=== PATIENT | female | born 1990 | race Caucasian/White ===

== ENCOUNTER 2019-08-13 18:29 | Inpatient (IN) | payer BC ==
[2019-08-13] MEDS ORDERED: Lidocaine 1% 50 ML MDV INJECT PRN (18:44)
[2019-08-13] MEDS ORDERED: Nalbuphine 10 MG/1 ML Vial IVPUSH PRN (18:44)
[2019-08-13] MEDS ORDERED: Water For Irrigation,Sterile 1,000 ML Container IRR PRN (18:44)
[2019-08-13] MEDS ORDERED: Sodium Chloride 0.9% 10 ML SDV IV PRN (18:44)
[2019-08-13] MEDS ORDERED: Tranexamic Acid 1,000 MG in Sodium Chloride 0.9% 100 ML IV PRN (18:44)
[2019-08-13] MEDS ORDERED: Methylergonovine 0.2 MG/1 ML Amp IM PRN (18:44)
[2019-08-13] MEDS ORDERED: Butorphanol 1 MG/ML SDV IVPUSH PRN (18:44)
[2019-08-13] MEDS ORDERED: Sodium Chloride 0.9% 10 ML Syringe FLUSH PRN (18:44)
[2019-08-13] MEDS ORDERED: Sodium Chloride 0.9% 2.5 ML Syringe FLUSH PRN (18:44)
[2019-08-13] MEDS ORDERED: Carboprost Tromethamine 250 MCG/1 ML Amp IM PRN (18:44)
[2019-08-13] MEDS ORDERED: Misoprostol 200 MCG Tab PO PRN (18:44)
[2019-08-13] MEDS ORDERED: Lactated Ringers 1,000 ML IV SCH ×2 (18:45→20:15)
[2019-08-13] MEDS ORDERED: Oxytocin/0.9 % Sodium Chloride 30 UNIT/500 ML BAG IV SCH (18:45)
[2019-08-13] MEDS ORDERED: Bupivicaine/fentaNYL/NS 250 ML ONE (19:59)
[2019-08-13] MEDS ORDERED: Ropivacaine 0.2% PF 2 MG/ML 20 ML SDV ONE (19:59)
--- NOTE | 2019-08-13 20:49 | PCM.PREANE ---
Preanesthetic Assessment - Procedure Proposed Procedure: labor epidural - Anesthesia/Transfusion/Family Hx Anesthesia History: No Prior Anesthesia Family History of Anesthesia Reaction: No Transfusion History: No Prior Transfusion(s) Intubation History: Unknown - Review of Systems General: No Symptoms Pulmonary: No Symptoms Cardiovascular: No Symptoms Gastrointestinal: No Symptoms Neurological: No Symptoms Other: Reports: None - Physical Assessment Height: 5 ft 5 in Weight: 71.214 kg ASA Class: 2 Mental Status: Alert & Oriented x3 Airway Class: Mallampati = 1 Dentition: Reports: Normal Dentition Thyro-Mental Finger Breadths: 3 Mouth Opening Finger Breadths: 3 ROM/Head Extension: Full Lungs: Clear to Auscultation, Normal Respiratory Effort Cardiovascular: Regular Rate, Regular Rhythm - Lab Values: Laboratory Last Values WBC 7.62 K/uL (4.0-11.0) 08/13/19 19:15 RBC 3.87 M/uL (4.30-5.90) L 08/13/19 19:15 Hgb 11.3 g/dL (12.0-16.0) L 08/13/19 19:15 Hct 34.1 % (36.0-46.0) L 08/13/19 19:15 MCV 88.1 fL (80.0-98.0) 08/13/19 19:15 MCH 29.2 pg (27.0-32.0) 08/13/19 19:15 MCHC 33.1 g/dL (31.0-37.0) 08/13/19 19:15 RDW Std Deviation 45.3 fl (28.0-62.0) 08/13/19 19:15 RDW Coeff of Caren 14 % (11.0-15.0) 08/13/19 19:15 Plt Count 180 K/uL (150-400) 08/13/19 19:15 MPV 10.90 fL (7.40-12.00) 08/13/19 19:15 Nucleated RBC % 0.0 /100WBC 08/13/19 19:15 Nucleated RBCs # 0 K/uL 08/13/19 19:15 - Allergies Allergies/Adverse Reactions: Allergies Allergy/AdvReac Type Severity Reaction Status Date / Time No Known Allergies Allergy Verified 08/13/19 18:44 - Blood Blood Available: Yes Product(s) Available: PRBC - Anesthesia Plan Pre-Op Medication Ordered: None - Acknowledgements Anesthesia Type Planned: Epidural Pt an Appropriate Candidate for the Planned Anesthesia: Yes Alternatives and Risks of Anesthesia Discussed w Pt/Guardian: Yes Pt/Guardian Understands and Agrees with Anesthesia Plan: Yes PreAnesthesia Questionnaire - HOME MEDS Home Medications: Home Meds . [No Known Home Meds] 08/13/19 [History] - CURRENT (IN HOUSE) MEDS Current Meds: Current Medications Butorphanol Tartrate (Stadol) 1 mg IVPUSH Q1H PRN PRN Reason: Pain Carboprost Tromethamine (Hemabate Ds) 250 mcg IM ASDIRECTED PRN PRN Reason: Post Hemorrhage Oxytocin/Sodium Chloride (Oxytocin 30 Unit/500 Ml-Ns) 30 unit in 500 mls @ 500 mls/hr IV TITRATE [facility] Tranexamic Acid 1,000 mg/ (Sodium Chloride) 110 mls @ 660 mls/hr IV ONETIME PRN PRN Reason: Bleeding Lactated Ringer's (Ringers, Lactated) 1,000 mls @ 150 mls/hr IV CONTINUOUS RAZ Lidocaine HCl (Xylocaine 1%) 50 ml INJECT ONETIME PRN PRN Reason: Laceration repair Methylergonovine Maleate (Methergine) 0.2 mg IM ASDIRECTED PRN PRN Reason: Post Hemorrhage Misoprostol (Cytotec) 200 mcg PO ONETIME PRN PRN Reason: Post Hemorrhage Nalbuphine HCl (Nubain) 10 mg IVPUSH Q1H PRN PRN Reason: Pain (severe 7-10) Sodium Chloride (Saline Flush) 10 ml FLUSH ASDIRECTED PRN PRN Reason: Keep Vein Open Sodium Chloride (Saline Flush) 2.5 ml FLUSH ASDIRECTED PRN PRN Reason: Keep Vein Open Sodium Chloride (Normal Saline) 10 ml IV ASDIRECTED PRN PRN Reason: IV Use Sterile Water (Sterile Water For Irrigation) 1,000 ml IRR ASDIRECTED PRN PRN Reason: delivery Discontinued Medications Lactated Ringer's (Ringers, Lactated) 1,000 mls @ 150 mls/hr IV ASDIRECTED RAZ Last Infusion: 08/13/19 20:14 Dose: 999 mls/hr Fentanyl/Bupivacaine HCl (Fentanyl/Bupivacaine/Ns 2 Mcg-0.125% 250 Ml) Confirm Administered Dose 250 mls @ as directed .ROUTE .ST-MED ONE Stop: 08/13/19 20:00 Ropivacaine (Naropin 0.2%) Confirm Administered Dose 20 ml .ROUTE .[facility]-MED ONE Stop: 08/13/19 20:00
[2019-08-14] MEDS ORDERED: Acetaminophen 500 MG Tab PO PRN (00:47)
[2019-08-14] MEDS ORDERED: Bisacodyl 10 MG Supp RECTAL PRN (00:47)
[2019-08-14] MEDS ORDERED: Lanolin 100% Cream 7 GM Tube TOP PRN (00:47)
[2019-08-14] MEDS ORDERED: Benzocaine/Menthol 20%-0.5% Spray 78 GM Cannister TOP PRN (00:47)
[2019-08-14] MEDS ORDERED: oxyCODONE 5 MG Tab PO PRN (00:47)
[2019-08-14] MEDS ORDERED: Witch Hazel Medicated Pads 40/Jar TOP PRN (00:47)
--- NOTE | 2019-08-14 00:52 | PCM.DEL ---
L & D Note - General Info Date of Service: 08/14/19 Mother's Due Date: 08/18/19 - Delivery Note Labor: Spontaneous Delivery Outcome: Livebirth Infant Delivery Method: Spontaneous Vaginal Delivery-Single Presentation: Vertex Nuchal Cord: None Anesthesia Type: Epidural Amniotic Fluid Description: Clear Episiotomy Type: None Laceration: 2nd Degree Suture type: Vicryl Suture size: 2-0 Placenta: Intact, Spontaneous, Manual Removal (cord avulsion, inspected and appears to be intact) Cord: 3 Vessels Estimated Blood Loss: 400 Resuscitation Needed: Yes Towner: Suctioned, Bulb Syringe, Cathether, Stimulated, Warmed Score 1 min: 8 Score 5 min: 9 - General Info Date of Service: 08/14/19 - Patient Data Weight - Most Recent: 71.214 kg Lab Results Last 24 Hours: Laboratory Results - last 24 hr 08/13/19 08/13/19 Range/Units 19:15 19:15 WBC 7.62 (4.0-11.0) K/uL RBC 3.87 L (4.30-5.90) M/uL Hgb 11.3 L (12.0-16.0) g/dL Hct 34.1 L (36.0-46.0) % MCV 88.1 (80.0-98.0) fL MCH 29.2 (27.0-32.0) pg MCHC 33.1 (31.0-37.0) g/dL RDW Std Deviation 45.3 (28.0-62.0) fl RDW Coeff of Caren 14 (11.0-15.0) % Plt Count 180 (150-400) K/uL MPV 10.90 (7.40-12.00) fL Nucleated RBC % 0.0 /100WBC Nucleated RBCs # 0 K/uL Blood Type O NEGATIVE Antibody Screen NEGATIVE Med Orders - Current: Current Medications Acetaminophen (Tylenol Extra Strength) 1,000 mg PO Q6H PRN PRN Reason: Pain Benzocaine/Menthol (Dermoplast Pain Relief 20%-0.5% [place]) 78 gm TOP ASDIRECTED PRN PRN Reason: Perineal Comfort Measure Bisacodyl (Dulcolax) 10 mg RECTAL ONETIME PRN PRN Reason: Constipation Butorphanol Tartrate (Stadol) 1 mg IVPUSH Q1H PRN PRN Reason: Pain Carboprost Tromethamine (Hemabate Ds) 250 mcg IM ASDIRECTED PRN PRN Reason: Post Hemorrhage Docusate Sodium (Colace) 100 mg PO BID PRN PRN Reason: Constipation Emollient Ointment (Lansinoh Hpa) 0 gm TOP ASDIRECTED PRN PRN Reason: Sore Nipples Oxytocin/Sodium Chloride (Oxytocin 30 Unit/500 Ml-Ns) 30 unit in 500 mls @ 500 mls/hr IV TITRATE RAZ Last Admin: 08/14/19 00:04 Dose: 500 mls/hr Tranexamic Acid 1,000 mg/ (Sodium Chloride) 110 mls @ 660 mls/hr IV ONETIME PRN PRN Reason: Bleeding Lactated Ringer's (Ringers, Lactated) 1,000 mls @ 150 mls/hr IV CONTINUOUS RAZ Ibuprofen (Motrin) 800 mg PO Q8H PRN PRN Reason: Pain Lidocaine HCl (Xylocaine 1%) 50 ml INJECT ONETIME PRN PRN Reason: Laceration repair Methylergonovine Maleate (Methergine) 0.2 mg IM ASDIRECTED PRN PRN Reason: Post Hemorrhage Misoprostol (Cytotec) 200 mcg PO ONETIME PRN PRN Reason: Post Hemorrhage Nalbuphine HCl (Nubain) 10 mg IVPUSH Q1H PRN PRN Reason: Pain (severe 7-10) Oxycodone HCl (Oxycodone) 5 mg PO Q2H PRN PRN Reason: Pain Sodium Chloride (Saline Flush) 10 ml FLUSH ASDIRECTED PRN PRN Reason: Keep Vein Open Sodium Chloride (Saline Flush) 2.5 ml FLUSH ASDIRECTED PRN PRN Reason: Keep Vein Open Sodium Chloride (Normal Saline) 10 ml IV ASDIRECTED PRN PRN Reason: IV Use Sterile Water (Sterile Water For Irrigation) 1,000 ml IRR ASDIRECTED PRN PRN Reason: delivery Last Admin: 08/14/19 00:04 Dose: 1,000 ml Witch Jessica (Tucks) 1 pad TOP ASDIRECTED PRN PRN Reason: comfort care Discontinued Medications Lactated Ringer's (Ringers, Lactated) 1,000 mls @ 150 mls/hr IV ASDIRECTED RAZ Last Infusion: 08/13/19 20:14 Dose: 999 mls/hr Fentanyl/Bupivacaine HCl (Fentanyl/Bupivacaine/Ns 2 Mcg-0.125% 250 Ml) Confirm Administered Dose 250 mls @ as directed .ROUTE .STK-MED ONE Stop: 08/13/19 20:00 Ropivacaine (Naropin 0.2%) Confirm Administered Dose 20 ml .ROUTE .STK-MED ONE Stop: 08/13/19 20:00 - Problem List & Annotations (1) Vaginal delivery SNOMED Code(s): 405297966 Code(s): O80 - ENCOUNTER FOR FULL-TERM UNCOMPLICATED DELIVERY Status: Acute Current Visit: Yes - Problem List Review Problem List Initiated/Reviewed/Updated: Yes - My Orders Last 24 Hours: My Active Orders 08/13/19 18:44 Patient Status [ADT] Routine Heart Tones [RC] CONTINUOUS Non Stress Test [RC] PER UNIT ROUTINE May Shower [RC] ASDIRECTED Notify Provider [RC] PRN Up ad Yudy [RC] ASDIRECTED Vaginal Exam [RC] PRN Vital Signs [RC] PER UNIT ROUTINE Butorphanol [Stadol] 1 mg IVPUSH Q1H PRN Carboprost Tromethamine [Hemabate DS] 250 mcg IM ASDIRECTED PRN Lidocaine 1% [Xylocaine 1%] 50 ml INJECT ONETIME PRN Methylergonovine [Methergine] 0.2 mg IM ASDIRECTED PRN Nalbuphine [Nubain] 10 mg IVPUSH Q1H PRN Sodium Chloride 0.9% [Normal Saline] 10 ml IV ASDIRECTED PRN Sodium Chloride 0.9% [Saline Flush] 10 ml FLUSH ASDIRECTED PRN Sodium Chloride 0.9% [Saline Flush] 2.5 ml FLUSH ASDIRECTED PRN Tranexamic Acid [Cyklokapron] 1,000 mg Sodium Chloride 0.9% [Normal Saline] 100 ml IV ONETIME Water For Irrigation,Sterile [Sterile Water for Irrigation] 1,000 ml IRR ASDIRECTED PRN miSOPROStoL [Cytotec] 200 mcg PO ONETIME PRN Scalp Electrode [WOMSER] Per Unit Routine Peripheral IV Insertion Adult [OM.PC] Routine Resuscitation Status Routine 08/13/19 18:45 Oxytocin/0.9 % Sodium Chloride [Oxytocin 30 Unit/500 ML-NS] 30 unit in 500 ml IV TITRATE 08/13/19 19:15 RPR (SYPHILIS SERO) W/ RFLX [REF] Routine 08/13/19 20:15 Lactated Ringers [Ringers, Lactated] 1,000 ml IV CONTINUOUS 08/14/19 00:47 Patient Status [ADT] Routine May Shower [RC] ASDIRECTED Notify Provider Vital Signs [RC] ASDIRECTED Up ad Yudy [RC] ASDIRECTED Vital Signs [RC] PER UNIT ROUTINE RHIG WORKUP, [BBK] Routine Acetaminophen [Tylenol Extra Strength] 1,000 mg PO Q6H PRN Benzocaine/Menthol [Dermoplast Pain Relief 20%-0.5% [place]] 78 gm TOP ASDIRECTED PRN Docusate Sodium [Colace] 100 mg PO BID PRN Ibuprofen [Motrin] 800 mg PO Q8H PRN Lanolin [Lansinoh HPA] See Dose Instructions TOP ASDIRECTED PRN bisacodyL [Dulcolax] 10 mg RECTAL ONETIME PRN oxyCODONE 5 mg PO Q2H PRN witch Jessica [Tucks] 1 pad TOP ASDIRECTED PRN Assess Lochia [WOMSER] Per Unit Routine Assess Uterine Involution [WOMSER] Per Unit Routine Breast Pump [WOMSER] Per Unit Routine Peripheral IV Discontinue [OM.PC] Routine 08/14/19 00:48 Cooling Warming Measures [RC] ASDIRECTED Ice Therapy [OM.PC] Per Unit Routine Perineal Care [OM.PC] Per Unit Routine Sitz Bath [OM.PC] Per Unit Routine 08/14/19 Breakfast Regular Diet [DIET] 08/15/19 05:11 HEMOGLOBIN/HEMATOCRIT,HH [HEME] Timed - Assessment Assessment:: 29yo s/p at 39w3d - Plan Plan:: Admit to unit for routine care. Rh negative, evaluate blood type, Rhogam if indicated.
--- NOTE | 2019-08-14 02:00 | OR ---
SURGEON: Yasmine Walker MD DATE OF PROCEDURE: 08/14/2019 PREOPERATIVE DIAGNOSES: 1. A 29-year-old G1, P0, at 39 weeks and 2 days' gestation. 2. Group B Streptococcus negative. 3. Labor. POSTOPERATIVE DIAGNOSES: 1. A 29-year-old G1, P1-0-0-1 at 39 weeks and 3 days' gestation, status post spontaneous vaginal delivery. 2. Umbilical cord avulsion. 3. Second degree perineal laceration. PROCEDURE: 1. Spontaneous vaginal delivery. 2. Manual extraction of placenta. 3. Repair of second-degree perineal laceration. PRIMARY SURGEON: Yasmine Walker MD ANESTHESIA: Epidural. FINDINGS: Live female infant in cephalic presentation with compound right hand. scores 8 and 9 at one and five minutes respectively. Weight 3210 g. Placenta intact and with 3-vessel cord. Second-degree perineal laceration. INDICATIONS: A 29-year-old G1, P0, who presented at 39 weeks and 2 days' gestation in active labor. She was found to be 4 to 5 cm dilated upon presentation and progressed to 6 cm dilated spontaneously. At this time, she received an epidural for pain control. At 7 cm dilated, she underwent artificial rupture of membranes with clear fluid noted. She progressed to complete cervical dilation. She began pushing and I was called to the room. DESCRIPTION OF PROCEDURE: The patient progressed to complete cervical dilation. She pushed and delivered a live female . The head was delivered followed by the shoulders and the remainder of the body. Right compound hand was noted. It was placed on maternal abdomen. After approximately 60 seconds, the cord was clamped and cut. During gentle traction on the umbilical cord, cord avulsion was noted. A manual extraction of the placenta was then performed easily. The placenta was inspected and noted to be intact without any missing cotyledons or membranes. A bimanual exam was performed and the uterus was palpated to be empty. The perineum was inspected and a second-degree perineal laceration was noted. This was repaired to anatomy and hemostasis with 2-0 Vicryl. Fundus was firm below the umbilicus with minimal lochia. The patient tolerated the delivery well. [id number] / MODL /[id number] [facility]
--- NOTE | 2019-08-14 07:30 | PCM48HPAN ---
Post Anesthesia Note - EVALUATION WITHIN 48HRS OF ANESTHETIC Vital Signs in Normal Range: Yes Patient Participated in Evaluation: Yes Respiratory Function Stable: Yes Airway Patent: Yes Cardiovascular Function Stable: Yes Hydration Status Stable: Yes Pain Control Satisfactory: Yes Nausea and Vomiting Control Satisfactory: Yes Mental Status Recovered: Yes
[2019-08-14] MEDS: Docusate Sodium 100 MG Cap PO PRN ×2 (09:54→22:58)
[2019-08-14] MEDS: Ibuprofen 800 MG Tab PO PRN ×2 (09:54→18:05)
--- NOTE | 2019-08-15 08:22 | PCM.PNPP ---
- General Info Date of Service: 08/15/19 Subjective Update: Patient without complaints. Moderate lochia. Pain controlled. going well today. Denies fevers/chills. Functional Status: Reports: Pain Controlled, Tolerating Diet, Ambulating, Urinating - Review of Systems General: Reports: No Symptoms HEENT: Reports: No Symptoms Pulmonary: Reports: No Symptoms Cardiovascular: Reports: No Symptoms Gastrointestinal: Reports: No Symptoms Genitourinary: Reports: No Symptoms Musculoskeletal: Reports: No Symptoms Skin: Reports: No Symptoms Neurological: Reports: No Symptoms Psychiatric: Reports: No Symptoms - Patient Data Vital Signs - Most Recent: Last Vital Signs Temp 36.0 C L 08/15/19 04:54 Pulse 64 08/15/19 04:54 Resp 16 08/15/19 04:54 BP 121/66 08/15/19 04:54 Pulse Ox 98 08/15/19 04:54 Weight - Most Recent: 71.214 kg Lab Results - Last 24 Hours: Laboratory Results - last 24 hr 08/14/19 08/15/19 Range/Units 01:42 05:52 Hgb 11.4 L (12.0-16.0) g/dL Hct 35.2 L (36.0-46.0) % Screen NEGATIVE (NEGATIVE) RhIG Candidate? YES Rhogam Indicated YES, BABY RH POS H Med Orders - Current: Current Medications Acetaminophen (Tylenol Extra Strength) 1,000 mg PO Q6H PRN PRN Reason: Pain Benzocaine/Menthol (Dermoplast Pain Relief 20%-0.5% [place]) 78 gm TOP ASDIRECTED PRN PRN Reason: Perineal Comfort Measure Bisacodyl (Dulcolax) 10 mg RECTAL ONETIME PRN PRN Reason: Constipation Butorphanol Tartrate (Stadol) 1 mg IVPUSH Q1H PRN PRN Reason: Pain Carboprost Tromethamine (Hemabate Ds) 250 mcg IM ASDIRECTED PRN PRN Reason: Post Hemorrhage Docusate Sodium (Colace) 100 mg PO BID PRN PRN Reason: Constipation Last Admin: 08/14/19 22:58 Dose: 100 mg Emollient Ointment (Lansinoh Hpa) 0 gm TOP ASDIRECTED PRN PRN Reason: Sore Nipples Last Admin: 08/14/19 22:58 Dose: 1 tube Oxytocin/Sodium Chloride (Oxytocin 30 Unit/500 Ml-Ns) 30 unit in 500 mls @ 500 mls/hr IV TITRATE [facility] Last Admin: 08/14/19 00:04 Dose: 500 mls/hr Tranexamic Acid 1,000 mg/ (Sodium Chloride) 110 mls @ 660 mls/hr IV ONETIME PRN PRN Reason: Bleeding Lactated Ringer's (Ringers, Lactated) 1,000 mls @ 150 mls/hr IV CONTINUOUS RAZ Ibuprofen (Motrin) 800 mg PO Q8H PRN PRN Reason: Pain Last Admin: 08/14/19 18:05 Dose: 800 mg Lidocaine HCl (Xylocaine 1%) 50 ml INJECT ONETIME PRN PRN Reason: Laceration repair Methylergonovine Maleate (Methergine) 0.2 mg IM ASDIRECTED PRN PRN Reason: Post Hemorrhage Misoprostol (Cytotec) 200 mcg PO ONETIME PRN PRN Reason: Post Hemorrhage Nalbuphine HCl (Nubain) 10 mg IVPUSH Q1H PRN PRN Reason: Pain (severe 7-10) Oxycodone HCl (Oxycodone) 5 mg PO Q2H PRN PRN Reason: Pain Sodium Chloride (Saline Flush) 10 ml FLUSH ASDIRECTED PRN PRN Reason: Keep Vein Open Sodium Chloride (Saline Flush) 2.5 ml FLUSH ASDIRECTED PRN PRN Reason: Keep Vein Open Sodium Chloride (Normal Saline) 10 ml IV ASDIRECTED PRN PRN Reason: IV Use Sterile Water (Sterile Water For Irrigation) 1,000 ml IRR ASDIRECTED PRN PRN Reason: delivery Last Admin: 08/14/19 00:04 Dose: 1,000 ml Witch Jessica (Tucks) 1 pad TOP ASDIRECTED PRN PRN Reason: comfort care Discontinued Medications Lactated Ringer's (Ringers, Lactated) 1,000 mls @ 150 mls/hr IV ASDIRECTED [facility] Last Infusion: 08/13/19 20:14 Dose: 999 mls/hr Fentanyl/Bupivacaine HCl (Fentanyl/Bupivacaine/Ns 2 Mcg-0.125% 250 Ml) Confirm Administered Dose 250 mls @ as directed .ROUTE .STK-MED ONE Stop: 08/13/19 20:00 Last Admin: 08/14/19 14:22 Dose: Not Given Ropivacaine (Naropin 0.2%) Confirm Administered Dose 20 ml .ROUTE .STK-MED ONE Stop: 08/13/19 20:00 Last Admin: 08/14/19 14:22 Dose: Not Given - Infant Interaction Disposition, : Melber in Room with Family Infant Feeding: Attempted ; Nursed Fair/Poor Support Person: - Recovery Exam Fundal Tone: Firm Fundal Level: 1 Fingerbreadths Below Umbilicus Fundal Placement: Midline Lochia Amount: Small Lochia Color: Rubra/Red Other Perinuem Description: 2nd degree laceration Bladder Status: Nonpalpable, Voiding Urinary Elimination: Voided - Exam General: Alert, Oriented Neck: Supple Lungs: Clear to Auscultation, Normal Respiratory Effort Cardiovascular: Regular Rate, Regular Rhythm GI/Abdominal Exam: Soft, Non-Tender Extremities: Non-Tender Skin: Warm, Dry, Intact Neurological: No New Focal Deficit Psy/Mental Status: Alert, Normal Affect, Normal Mood - Problem List & Annotations (1) Vaginal delivery SNOMED Code(s): 006556624 Code(s): O80 - ENCOUNTER FOR FULL-TERM UNCOMPLICATED DELIVERY Status: Acute Current Visit: Yes - Problem List Review Problem List Initiated/Reviewed/Updated: Yes - My Orders Last 24 Hours: My Active Orders 08/15/19 08:20 Ready for Discharge [RC] PER UNIT ROUTINE - Assessment Assessment:: 29yo s/p at 39w3d, PPD#1 - Plan Plan:: Reviewed discharge instructions, will discharge home today if infant cleared by biology internship. Hemoglobin stable. Received Rhogam. Encouraged to continue . Reviewed depression signs/symptoms.
== END 2019-08-15 13:30 | disposition home or self-care (01) | DRG 560 ==
LOC: MW.OBCHECK 18:29 → MW.OB 18:29 → MW.OBCHECK 18:44 → OBSVTOIN 08-14 00:17 → MW.OB 08-14 04:42
PROVIDERS: ADMIT Obstetrics & Gynecology; ATTEND Obstetrics & Gynecology
PROC: 10E0XZZ Delivery of Products of Conception, External Approach (ICD-10-PCS; principal; 2019-08-14)
PROC: 10907ZC Drainage of Amniotic Fluid, Therapeutic from Products of Conception, Via Natural or Artificial Opening (ICD-10-PCS; 2019-08-14)
PROC: 4A1HXCZ Monitoring of Products of Conception, Cardiac Rate, External Approach (ICD-10-PCS; 2019-08-14)
PROC: 3E0R3BZ Introduction of Anesthetic Agent into Spinal Canal, Percutaneous Approach (ICD-10-PCS; 2019-08-14)
DX: O80 Encounter for full-term uncomplicated delivery (principal); Z3A.39 39 weeks gestation of pregnancy; Z37.0 Single live birth
CPT/HCPCS: 36415; 51701; 51702; 59025; 59409; 85014; 85018; 85027; 85460; 86592; 86593; 86850; 86900; 86901; A9270-GY; J2590; J2792; J7120

== ENCOUNTER 2019-09-25 04:47 | Emergency (ER) | payer BC ==
--- NOTE | 2019-09-25 05:01 | EDM.PDOC ---
ED HPI GENERAL MEDICAL PROBLEM - General Chief Complaint: Flank Pain Stated Complaint: LT SIDE PAIN Time Seen by Provider: 09/25/19 04:49 Source of Information: Reports: Patient History Limitations: Reports: No Limitations - History of Present Illness Duration: Day(s): (two) Location: Reports: Abdomen Quality: Reports: Ache Severity: Moderate Improves with: Reports: None Worsens with: Reports: None Associated Symptoms: Reports: No Other Symptoms. Denies: Fever/Chills, Loss of Appetite, Nausea/Vomiting L flank Pain Score (Numeric/FACES): 3 - Related Data Allergies Allergy/AdvReac Type Severity Reaction Status Date / Time No Known Allergies Allergy Verified 08/13/19 18:44 Home Meds: Home Meds . 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 ED EXAM, RENAL/ - Physical Exam Exam: See Below Exam Limited By: No Limitations General Appearance: Alert, No Apparent Distress Head: Atraumatic Neck: Normal Inspection, Supple, Non-Tender Respiratory/Chest: No Respiratory Distress, Lungs Clear, Normal Breath Sounds Cardiovascular: Regular Rate, Rhythm, No Edema GI/Abdominal: Normal Bowel Sounds, Soft, Tender, Other (Mild tenderness left lower quadrant and left flank.). No: Guarding, Rigid, Rebound Back Exam: Normal Inspection. No: CVA Tenderness (L), CVA Tenderness (R) Extremities: Normal Inspection Neurological: Alert, Oriented Psychiatric: Normal Affect Skin Exam: Warm, Dry Course - Vital Signs Text/Narrative:: Patient had IV started and was given fluids and some Toradol which made her much more comfortable. Patient's lab work was unremarkable except for a small amount of leukocytes in her urine. Her CT scan shows 3 distinct pelvic masses which contain fat and nonfatty elements and calcifications the largest being to the right of midline at 8.2 x 6.5 x 7.4 cm and also 1 right of the central which is adjacent to the previous which is smaller and a third to the left of midline which approximately 5.5 x 3.5 x 4.4 cm. I discussed these findings with Dr. Alvarado who is covering for Dr. Walker who was not sure what to make of these findings and wanted patient seen in their clinic today where they will do an ultrasound and decide on subtraction. Patient does not want any pain meds at this time and is informed that if she is not called by her OB provider by noon she is to call the clinic to be seen today. Last Recorded V/S: Last Vital Signs Temp 36.3 C 09/25/19 04:59 Pulse 53 L 09/25/19 06:05 Resp 14 09/25/19 06:05 BP 111/67 09/25/19 06:05 Pulse Ox 99 09/25/19 06:05 - Orders/Labs/Meds Labs: Laboratory Tests 09/25/19 09/25/19 09/25/19 Range/Units 05:00 05:20 05:20 WBC 5.78 (4.0-11.0) K/uL RBC 4.99 (4.30-5.90) M/uL Hgb 14.3 (12.0-16.0) g/dL Hct 44.0 (36.0-46.0) % MCV 88.2 (80.0-98.0) fL MCH 28.7 (27.0-32.0) pg MCHC 32.5 (31.0-37.0) g/dL RDW Std Deviation 43.0 (28.0-62.0) fl RDW Coeff of Caren 13 (11.0-15.0) % Plt Count 223 (150-400) K/uL MPV 10.20 (7.40-12.00) fL Neut % (Auto) 61.5 (48.0-80.0) % Lymph % (Auto) 31.8 (16.0-40.0) % [place] % (Auto) 5.9 (0.0-15.0) % Eos % (Auto) 0.5 (0.0-7.0) % Baso % (Auto) 0.3 (0.0-1.5) % Neut # (Auto) 3.6 (1.4-5.7) K/uL Lymph # (Auto) 1.8 (0.6-2.4) K/uL [place] # (Auto) 0.3 (0.0-0.8) K/uL Eos # (Auto) 0.0 (0.0-0.7) K/uL Baso # (Auto) 0.0 (0.0-0.1) K/uL Nucleated RBC % 0.0 /100WBC Nucleated RBCs # 0 K/uL Sodium 138 (136-145) mmol/L Potassium 3.8 (3.5-5.1) mmol/L Chloride 102 (98-107) mmol/L Carbon Dioxide 27.7 (21.0-32.0) mmol/L BUN 10 (7.0-18.0) mg/dL Creatinine 0.9 (0.6-1.0) mg/dL Est Cr Clr Drug Dosing 87.90 mL/min Estimated GFR (MDRD) > 60.0 ml/min Glucose 92 (74-106) mg/dL Calcium 9.1 (8.5-10.1) mg/dL Total Bilirubin 0.2 (0.2-1.0) mg/dL AST 14 L (15-37) IU/L ALT 23 (14-63) IU/L Alkaline Phosphatase 95 (46-116) U/L Total Protein 7.3 (6.4-8.2) g/dL Albumin 3.9 (3.4-5.0) g/dL Globulin 3.4 (2.6-4.0) g/dL Albumin/Globulin Ratio 1.1 (0.9-1.6) Urine Color YELLOW Urine Appearance CLEAR Urine pH 5.5 (5.0-8.0) Ur Specific [place] 1.025 (1.001-1.035) Urine Protein NEGATIVE (NEGATIVE) mg/dL Urine Glucose (UA) NEGATIVE (NEGATIVE) mg/dL Urine Ketones NEGATIVE (NEGATIVE) mg/dL Urine Occult Blood NEGATIVE (NEGATIVE) Urine Nitrite NEGATIVE (NEGATIVE) Urine Bilirubin NEGATIVE (NEGATIVE) Urine Urobilinogen 0.2 (<2.0) EU/dL Ur Leukocyte Esterase SMALL H (NEGATIVE) Urine RBC 0-1 (0-2/HPF) Urine WBC 1-2 (0-5/HPF) Ur Epithelial Cells RARE (NONE-FEW) Urine Bacteria RARE (NEGATIVE) Meds: Medications Discontinued Medications Generic Name Dose Route Start Last Admin Trade Name Joanne PRN Reason Stop Dose Admin Sodium Chloride 1,000 mls @ 999 mls/hr 09/25/19 05:18 09/25/19 05:30 Normal Saline IV 09/25/19 06:18 999 mls/hr .BOLUS ONE Administration Ketorolac Tromethamine 30 mg 09/25/19 05:18 09/25/19 05:30 Toradol IVPUSH 09/25/19 05:19 30 mg ONETIME ONE Administration Departure - Departure Time of Disposition: 06:46 Disposition: Home, Self-Care 01 Condition: Good Clinical Impression: Pelvic mass in female - Discharge Information Instructions: Pelvic Mass, Female Referrals: Ankush Cárdenas MD [Primary Care Provider] - Forms: ED Department Discharge Additional Instructions: See Dr. Walker today in clinic. If she has not called you by noon time with an appointment please call the clinic to be seen today. They are expecting to do an ultrasound and review all of your findings from your ER visit. Tylenol and ibuprofen as needed. Return to ER if having fever or chills, vomiting or worse pain. Care Plan Goals: The following information is given to patients seen in the emergency department who are being discharged to home. This information is to outline your options for follow-up care. We provide all patients seen in our emergency department with a follow-up referral. The need for follow-up, as well as the timing and circumstances, are variable depending upon the specifics of your emergency department visit. If you don't have a primary care physician on staff, we will provide you with a referral. We always advise you to contact your personal physician following an emergency department visit to inform them of the circumstance of the visit and for follow-up with them and/or the need for any referrals to a consulting specialist. The emergency department will also refer you to a specialist when appropriate. This referral assures that you have the opportunity for follow-up care with a specialist. All of these measure are taken in an effort to provide you with optimal care, which includes your follow-up. Under all circumstances we always encourage you to contact your private physician who remains a resource for coordinating your care. When calling for follow-up care, please make the office aware that this follow-up is from your recent emergency room visit. If for any reason you are refused follow-up, please contact the [facility] Emergency Department at and asked to speak to the emergency department charge nurse. Sepsis Event Note - Focused Exam Vital Signs: Vital Signs Temp Pulse Resp BP Pulse Ox 09/25/19 06:05 53 L 14 111/67 99 09/25/19 04:59 36.3 C 80 18 133/74 98 Date Exam was Performed: 09/25/19 Time Exam was Performed: 06:40
[2019-09-25] MEDS ORDERED: Sodium Chloride 0.9% 1,000 ML IV ONE (05:18)
[2019-09-25] MEDS ORDERED: Ketorolac 30 MG/ML SDV IVPUSH ONE (05:18)
[2019-09-25 05:55] LABS: BLOOD UREA NITROGEN,BUN 10 mg/dL (7.0-18.0); CARBON DIOXIDE,CO2 27.7 mmol/L (21.0-32.0); CHLORIDE,CL 102 mmol/L (98-107); GLUCOSE RANDOM 92 mg/dL (74-106); POTASSIUM,K 3.8 mmol/L (3.5-5.1); SODIUM,NA 138 mmol/L (136-145)
--- NOTE | 2019-09-25 06:22 | CT ---
HISTORY: Left-sided abdominal pain. TECHNIQUE: Noncontrast CT of the abdomen and pelvis. COMPARISON: No prior. FINDINGS: No focal liver mass. Gallbladder does not appear overly distended. Spleen size within normal limits. Adrenal glands are normal. Pancreas is unremarkable. There is no hydronephrosis. No obstructive calculus. No renal mass or perinephric fluid. Urinary bladder is nondistended. - There are several adjacent pelvic masses which contain fat, non-fatty elements and calcifications. For example, posterior pelvic mass extending to the right of midline measures 8.2 x 6.5 x 7.4 cm on image #113. Adjacent right central pelvic mass measures approximately 4 x 3.7 x 3.4 cm in size. To the left of the midline is an approximately 5.5 x 3.5 x 4.4 cm lower pelvic mass as seen on image #113. - There is no fluid collection or free air. No small bowel obstruction. No appendicitis. No diverticulitis. - No acute bony abnormality. - No infiltrate within the lung bases nor pleural effusion. IMPRESSION: 1. Multiple adjacent pelvic masses which contain internal fat, non-fatty elements and calcifications. Primary considerations is teratoma, either a multi lobed single mass or multifocal adjacent teratomas. 2. No hydronephrosis or obstructive calculus. 3. No bowel obstruction, appendicitis or diverticulitis. Dictated by Norris Li MD @ 09/25/2019 6:20:40 AM Please note that all CT scans at this facility use dose modulation, iterative reconstruction, and/or weight-based dosing when appropriate to reduce radiation dose to as low as reasonably achievable. Dictated by: Norris Li MD @ 09/25/2019 06:20:49 (Electronically Signed)
== END 2019-09-25 06:52 | disposition home or self-care (01) ==
LOC: MW.ED 04:47
DX: R19.04 Left lower quadrant abdominal swelling, mass and lump (principal)
CPT/HCPCS: 36415; 74176; 80053; 81001; 85025; 96361; 96374; 99284; J1885; J7030; 99283

== ENCOUNTER 2019-10-02 10:16 | Observation (INO) | payer BC ==
[~2019-10-02 10:16] MED LIST: Sugammadex Sodium 200 MG/2 ML VIAL ONE; fentaNYL 100 MCG/2 ML SDV ONE
[2019-10-02] MEDS ORDERED: Glycopyrrolate 0.2 MG/ML SDV ONE (10:24)
[2019-10-02] MEDS ORDERED: Rocuronium 100 MG/10 ML Syringe ONE (10:24)
[2019-10-02] MEDS ORDERED: Lidocaine 2% 5 ML SDV ONE (10:24)
[2019-10-02] MEDS ORDERED: Ketorolac 30 MG/ML SDV ONE (10:24)
[2019-10-02] MEDS ORDERED: Ondansetron 4 MG/2 ML SDV ONE (10:24)
[2019-10-02] MEDS ORDERED: Midazolam 1 MG/ML 2 ML SDV ONE (10:24)
[2019-10-02] MEDS ORDERED: Propofol 200 MG/20 ML SDV ONE (10:24)
--- NOTE | 2019-10-02 10:54 | PCM.PREANE ---
Preanesthetic Assessment - Anesthesia/Transfusion/Family Hx Anesthesia History: No Prior Anesthesia Family History of Anesthesia Reaction: No Transfusion History: No Prior Transfusion(s) Intubation History: Unknown - Review of Systems General: No Symptoms Pulmonary: No Symptoms Cardiovascular: No Symptoms Gastrointestinal: Abdominal Pain Neurological: No Symptoms Other: Reports: None - Physical Assessment Height: 5 ft 6 in Weight: 63.049 kg ASA Class: 2 Mental Status: Alert & Oriented x3 Airway Class: Mallampati = 2 Dentition: Reports: Normal Dentition Thyro-Mental Finger Breadths: 3 Mouth Opening Finger Breadths: 3 ROM/Head Extension: Full Lungs: Clear to Auscultation, Normal Respiratory Effort Cardiovascular: Regular Rate, Regular Rhythm - Allergies Allergies/Adverse Reactions: Allergies Allergy/AdvReac Type Severity Reaction Status Date / Time No Known Allergies Allergy Verified 09/27/19 14:03 - Blood Blood Available: No - Anesthesia Plan Pre-Op Medication Ordered: None - Acknowledgements Anesthesia Type Planned: General Anesthesia Pt an Appropriate Candidate for the Planned Anesthesia: Yes Alternatives and Risks of Anesthesia Discussed w Pt/Guardian: Yes Pt/Guardian Understands and Agrees with Anesthesia Plan: Yes PreAnesthesia Questionnaire - Past Health History Medical/Surgical History: Denies Medical/Surgical History HEENT History: Reports: Impaired Vision Other HEENT History: wears contacts/glasses Cardiovascular History: Reports: None Respiratory History: Reports: None Gastrointestinal History: Reports: None Genitourinary History: Reports: None 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: Reports: Polycystic Ovaries, (delivered baby 6 weeks ago- ) Musculoskeletal History: Reports: None Neurological History: Reports: None Psychiatric History: Reports: None Endocrine/Metabolic History: Reports: None Hematologic History: Reports: None Immunologic History: Reports: None Oncologic (Cancer) History: Reports: None Dermatologic History: Reports: None - Infectious Disease History Infectious Disease History: Reports: Chicken Pox Other Infectious Disease History: Patient unkown about chicken pox - Past Surgical History Head Surgeries/Procedures: Reports: None Cardiovascular Surgical History: Reports: None Respiratory Surgical History: Reports: None GI Surgical History: Reports: None Female Surgical History: Reports: None Endocrine Surgical History: Reports: None Neurological Surgical History: Reports: None Musculoskeletal Surgical History: Reports: None Oncologic Surgical History: Reports: None Dermatological Surgical History: Reports: None - SUBSTANCE USE Smoking Status *Q: Former Smoker Tobacco Use Within Last Twelve Months: Cigarettes Recreational Drug Use History: No - HOME MEDS Home Medications: Home Meds Pnv No.95/Ferrous Fum/Folic AC [ Vitamin Tablet] 1 tab PO DAILY [History] - CURRENT (IN HOUSE) MEDS Current Meds: Current Medications Discontinued Medications Fentanyl (Sublimaze) Confirm Administered Dose 100 mcg .ROUTE .STK-MED ONE Stop: 10/02/19 10:16 Glycopyrrolate (Robinul) Confirm Administered Dose 0.2 mg .ROUTE .STK-MED ONE Stop: 10/02/19 10:25 Ketorolac Tromethamine (Toradol) Confirm Administered Dose 30 mg .ROUTE .STK- MED ONE Stop: 10/02/19 10:25 Lidocaine (Xylocaine-Mpf 2%) Confirm Administered Dose 5 ml .ROUTE .STK-MED ONE Stop: 10/02/19 10:25 Midazolam HCl (Versed 1 Mg/Ml) Confirm Administered Dose 2 mg .ROUTE .STK-MED ONE Stop: 10/02/19 10:25 Ondansetron HCl (Zofran) Confirm Administered Dose 4 mg .ROUTE .STK-MED ONE Stop: 10/02/19 10:25 Propofol (Diprivan 20 Ml) Confirm Administered Dose 200 mg .ROUTE .STK-MED ONE Stop: 10/02/19 10:25 Rocuronium Julian (Zemuron) Confirm Administered Dose 100 mg .ROUTE .STK-MED ONE Stop: 10/02/19 10:25 Sugammadex Sodium (Bridion) Confirm Administered Dose 200 mg .ROUTE .STK-MED ONE Stop: 10/02/19 07:01
[2019-10-02] MEDS ORDERED: Lactated Ringers 1,000 ML IV SCH (11:45)
[2019-10-02] MEDS ORDERED: Bupivacaine 0.25% 10 ML SDV ONE (11:59)
[2019-10-02] MEDS ORDERED: fentaNYL 100 MCG/2 ML SDV ONE ×2 (12:41→13:51)
[2019-10-02] MEDS ORDERED: fentaNYL 250 MCG/5 ML SDV ONE (13:03)
[2019-10-02] MEDS ORDERED: fentaNYL 100 MCG/2 ML SDV IVPUSH PRN (13:43)
[2019-10-02] MEDS ORDERED: Acetaminophen 1,000 MG in Premix Bag 1 BAG IV PRN (13:43)
[2019-10-02] MEDS ORDERED: Promethazine 25 MG/ML SDV IM PRN (14:29)
[2019-10-02] MEDS ORDERED: Ketorolac 30 MG/ML SDV IVPUSH PRN (14:29)
[2019-10-02] MEDS ORDERED: Acetaminophen/oxyCODONE 325-5 MG Tab PO PRN ×2 (14:29)
[2019-10-02] MEDS ORDERED: Morphine 4 MG/ML Syringe IVPUSH PRN (14:29)
[2019-10-02] MEDS ORDERED: Ketorolac 30 MG/ML SDV IVPUSH ONE (14:29)
[2019-10-02] MEDS ORDERED: Ondansetron 4 MG/2 ML SDV IVPUSH PRN (14:29)
[2019-10-02] MEDS ORDERED: Ibuprofen 800 MG Tab PO PRN (14:32)
--- NOTE | 2019-10-02 14:40 | PCM.OPNOTE ---
- General Post-Op/Procedure Note Date of Surgery/Procedure: 10/02/19 Operative Procedure(s): Exploratory laparotomy with removal of suspected dermoid cysts Findings: Normal-appearing uterus. Enlarged bilateral ovaries. Left ovary torsed x4 with dermoid x2 (largest 2-3cm) & paratubal cyst x1 Right ovary torsed x4 with dermoid x3 (largest 8-9cm) paratubal cyst x1 Pre Op Diagnosis: 29yo with suspected bilateral ovarian dermoid cysts Post-Op Diagnosis: 29yo with 5 suspected dermoid cysts, 2 paratubal cysts Anesthesia Technique: General ET Tube Primary Surgeon: Yasmine Walker Secondary Surgeon: Petrona Alvarado Anesthesia Provider: Bina Orlando Pathology: Ovarian cysts, paratubal cyst Pelvic washings Fluid Replacement, Intraop: 1,700 EBL in mLs: 50 Complications: None Condition: Good Free Text/Narrative:: Interceed adhesion barrier placed around bilateral ovaries Bladder drained prior to procedure
--- NOTE | 2019-10-02 15:10 | PCM.POSTAN ---
POST ANESTHESIA ASSESSMENT - MENTAL STATUS Mental Status: Alert - VITAL SIGNS Vital Signs: Last Vital Signs Temp 36.3 C 10/02/19 14:20 Pulse 55 L 10/02/19 15:05 Resp 15 10/02/19 15:05 BP 114/72 10/02/19 15:05 Pulse Ox 100 10/02/19 15:05 - RESPIRATORY Respiratory Status: Respiratory Rate WNL - CARDIOVASCULAR CV Status: Pulse Rate WNL - GASTROINTESTINAL GI Status: No Symptoms - POST OP HYDRATION Hydration Status: Adequate & Stable
[2019-10-02] MEDS ORDERED: Docusate Sodium 100 MG Cap PO SCH (21:00)
--- NOTE | 2019-10-03 06:57 | PCM48HPAN ---
Post Anesthesia Note - EVALUATION WITHIN 48HRS OF ANESTHETIC Vital Signs in Normal Range: Yes Patient Participated in Evaluation: Yes Respiratory Function Stable: Yes Airway Patent: Yes Cardiovascular Function Stable: Yes Hydration Status Stable: Yes Pain Control Satisfactory: Yes Nausea and Vomiting Control Satisfactory: Yes Mental Status Recovered: Yes Vital Signs: Last Vital Signs Temp 98.1 F 10/03/19 04:00 Pulse 73 10/03/19 04:00 Resp 18 10/03/19 04:00 BP 111/63 10/03/19 04:00 Pulse Ox 97 10/03/19 04:00
--- NOTE | 2019-10-03 07:13 | OR ---
SURGEON: Yasmine Walker MD DATE OF PROCEDURE: 10/02/2019 PREOPERATIVE DIAGNOSIS: A 29-year-old with 3 suspected bilateral ovarian dermoid cysts. POSTOPERATIVE DIAGNOSES: 1. A 29-year-old with 5 suspected dermoid cysts. 2. Paratubal cysts. PROCEDURE: Exploratory laparotomy with removal of suspected dermoid cysts. PRIMARY SURGEON: Yasmine Walker MD. STATISTICAL CLERK ADVERTISING: Petrona Alvarado M.D. ANESTHESIA: General endotracheal tube, Dr. Orlando. PATHOLOGY: 1. Ovarian cyst. 2. Paratubal cyst. 3. Pelvic washings. IV FLUIDS: 1700 mL LR. ESTIMATED BLOOD LOSS: 50 mL. URINE OUTPUT: Bladder drained prior to procedure. FINDINGS: 1. Normal-appearing uterus, enlarged bilateral ovaries with multiple cysts. 2. Left ovary torsed x4 with dermoid x2, large 2 to 3 cm, paratubal cyst x1. 3. Right ovary torsed x4 with dermoid x3, largest 8 to 9 cm, paratubal cyst x1. COMPLICATIONS: None. DESCRIPTION OF PROCEDURE: The patient was taken to the operating room, where general anesthesia was obtained. She was placed in the dorsal lithotomy position with legs in Darryl- type stirrups. She was prepared and draped in the normal sterile fashion. A speculum was placed into the vagina. The uterus was sounded to 6.5 cm. A HUMI uterine manipulator was inserted and the balloon inflated with 5 mL of normal saline. Attention was then turned to the abdomen. At this time, it was decided to perform a mini laparotomy rather than proceed with diagnostic laparoscopy due to concerns for cyst rupture during laparoscopy with subsequent peritoneal irritation and increased risk of bleeding and adhesions. A 6 cm Pfannenstiel incision was made. This was carried through to the underlying layer of fascia with the Bovie. The fascia was incised in the midline and incision extended laterally with curved Rosenberg scissors. The superior aspect of the fascial incision was grasped with Luann clamps, elevated, and underlying rectus muscles dissected off bluntly and with Bovie. In a similar fashion, the inferior aspect of the fascial incision was grasped with Luann clamps, elevated, and underlying rectus muscles dissected off bluntly and with Bovie. The peritoneum was identified in the midline and entered bluntly. The peritoneal incision was extended manually with gentle traction. A small Alfred retractor was inserted. At this time, it was noted that the HUMI manipulator have perforated posteriorly in the uterus and it was removed. Pelvic washings were obtained. The left ovary was identified and brought out of the incision. It was noted to be torsed 4 times and was untwisted. The capsule was incised with the Bovie. At this time, the dermoid cyst was inadvertently entered. She the edges of the capsule were grasped with Luann clamps, elevated, and the cyst wall dissected off with a combination of blunt and sharp dissection. The cyst was then easily removed from the ovary, connected to the second suspected dermoid cyst. Hemostasis was obtained with the Bovie. The capsule at the cyst wall was obliterated and closed with a running stitch of 2-0 Vicryl. The ovary was returned to the abdomen. The right ovary was identified and was unable to be brought through the incision. An Endo Catch bag was placed into the abdomen and used to assist in elevating the ovary and large dermoid out of the pelvis and the incision. The capsule was incised with a scalpel, and the cyst wall retracted with an Allis clamp. Using a combination of blunt and sharp dissection, the large dermoid cyst was able to be removed intact. Two smaller dermoid cysts were removed in a similar fashion. Again, the cyst wall was obliterated and closed using a running stitch of 2-0 Vicryl. Hemostasis was observed. Irrigation was not performed as it was felt that no cyst fluid had escaped into the pelvic cavity. The Interceed adhesion barrier was placed over the right ovary, and it was returned to the abdomen. The left ovary was brought back to the incision and noted to have some bleeding. This was cauterized with the Bovie and a [id number] stitch of 2-0 Vicryl was used to further obliterate the capsule space. Interceed adhesion barrier was then placed around the left ovary, and it was returned to the pelvis. The Alfred retractor was removed. The peritoneum was closed with a running stitch of 3-0 Vicryl. The fascia was closed with a running stitch of 0 Vicryl. Subcutaneous tissue was closed with running stitch of 3-0 Vicryl. The skin was closed with 4-0 Monocryl in a subcuticular fashion. Steri-Strips and Tegaderm were placed. The patient tolerated the procedure well. All sponge, lap, and needle counts were correct. She was taken to recovery room in stable condition. [id number] / MODL /[id number] MTDD
--- NOTE | 2019-10-03 08:05 | PCM.PN ---
- General Info Date of Service: 10/03/19 Subjective Update: Patient doing well. Sore, but pain controlled. Tolerating oral intake, voiding, ambulating. Functional Status: Reports: Pain Controlled, Tolerating Diet, Ambulating, Urinating - Review of Systems General: Reports: No Symptoms HEENT: Reports: No Symptoms Pulmonary: Reports: No Symptoms Cardiovascular: Reports: No Symptoms Gastrointestinal: Reports: No Symptoms Genitourinary: Reports: No Symptoms Musculoskeletal: Reports: No Symptoms Skin: Reports: No Symptoms Neurological: Reports: No Symptoms Psychiatric: Reports: No Symptoms - Patient Data Vitals - Most Recent: Last Vital Signs Temp 36.7 C 10/03/19 04:00 Pulse 73 10/03/19 04:00 Resp 18 10/03/19 04:00 BP 111/63 10/03/19 04:00 Pulse Ox 97 10/03/19 04:00 Weight - Most Recent: 63.049 kg I&O - Last 24 Hours: Intake & Output 10/02/19 10/03/19 10/03/19 22:59 06:59 14:59 Intake Total 2100 Output Total 600 Balance 1500 Lab Results Last 24 Hours: Laboratory Results - last 24 hr 10/02/19 10/02/19 10/02/19 Range/Units 11:06 11:06 11:06 WBC 4.27 (4.0-11.0) K/uL RBC 4.92 (4.30-5.90) M/uL Hgb 13.9 (12.0-16.0) g/dL Hct 43.3 (36.0-46.0) % MCV 88.0 (80.0-98.0) fL MCH 28.3 (27.0-32.0) pg MCHC 32.1 (31.0-37.0) g/dL RDW Std Deviation 43.2 (28.0-62.0) fl RDW Coeff of Caren 13 (11.0-15.0) % Plt Count 219 (150-400) K/uL MPV 10.70 (7.40-12.00) fL Nucleated RBC % 0.0 /100WBC Nucleated RBCs # 0 K/uL HCG, Qual NEGATIVE (NEG) Blood Type O NEGATIVE Antibody Screen POSITIVE Antibody Identification Anti-D 10/03/19 Range/Units 05:05 WBC (4.0-11.0) K/uL RBC (4.30-5.90) M/uL Hgb 11.6 L (12.0-16.0) g/dL Hct 35.5 L (36.0-46.0) % MCV (80.0-98.0) fL MCH (27.0-32.0) pg MCHC (31.0-37.0) g/dL RDW Std Deviation (28.0-62.0) fl RDW Coeff of Caren (11.0-15.0) % Plt Count (150-400) K/uL MPV (7.40-12.00) fL Nucleated RBC % /100WBC Nucleated RBCs # K/uL HCG, Qual (NEG) Blood Type Antibody Screen Antibody Identification Med Orders - Current: Current Medications Docusate Sodium (Colace) 100 mg PO BID [facility] Last Admin: 10/02/19 21:06 Dose: 100 mg Fentanyl (Sublimaze) 50 mcg IVPUSH Q5M PRN PRN Reason: Pain Last Admin: 10/02/19 14:59 Dose: 50 mcg Lactated Ringer's (Ringers, Lactated) 1,000 mls @ 100 mls/hr IV ASDIRECTED [facility] Last Admin: 10/02/19 11:00 Dose: 100 mls/hr Acetaminophen 1,000 mg/ Premix 100 mls @ 400 mls/hr IV Q6H PRN PRN Reason: Pain Last Admin: 10/02/19 14:40 Dose: 400 mls/hr Ibuprofen (Motrin) 800 mg PO Q8H PRN PRN Reason: Pain (mild 1-3) Last Admin: 10/03/19 04:01 Dose: 800 mg Morphine Sulfate (Morphine) 4 mg IVPUSH Q2H PRN PRN Reason: Pain (severe 7-10) Non-Formulary Medication (Pnv No.95/Ferrous Fum/Folic Ac [ Vitamin Tablet]) 1 tab PO DAILY [facility] Ondansetron HCl (Zofran) 4 mg IVPUSH Q6H PRN PRN Reason: Nausea/Vomiting Oxycodone/Acetaminophen (Percocet 325-5 Mg) 1 tab PO Q4H PRN PRN Reason: Pain (moderate 4-6) Oxycodone/Acetaminophen (Percocet 325-5 Mg) 2 tab PO Q4H PRN PRN Reason: Pain (moderate 4-6) Promethazine HCl (Phenergan) 25 mg IM Q6H PRN PRN Reason: Nausea/Vomiting Discontinued Medications Bupivacaine HCl (Sensorcaine-Mpf 0.25%) Confirm Administered Dose 10 ml .ROUTE .STK-MED ONE Stop: 10/02/19 12:00 Fentanyl (Sublimaze) Confirm Administered Dose 100 mcg .ROUTE .STK-MED ONE Stop: 10/02/19 10:16 Fentanyl (Sublimaze) Confirm Administered Dose 100 mcg .ROUTE .STK-MED ONE Stop: 10/02/19 12:42 Fentanyl (Sublimaze) Confirm Administered Dose 250 mcg .ROUTE .STK-MED ONE Stop: 10/02/19 13:04 Fentanyl (Sublimaze) Confirm Administered Dose 100 mcg .ROUTE .STK-MED ONE Stop: 10/02/19 13:52 Glycopyrrolate (Robinul) Confirm Administered Dose 0.2 mg .ROUTE .STK-MED ONE Stop: 10/02/19 10:25 Acetaminophen (Ofirmev) Confirm Administered Dose 100 mls @ as directed .ROUTE .STK-MED ONE Stop: 10/02/19 14:40 Ketorolac Tromethamine (Toradol) Confirm Administered Dose 30 mg .ROUTE .STK- MED ONE Stop: 10/02/19 10:25 Ketorolac Tromethamine (Toradol) 30 mg IVPUSH ONETIME ONE Stop: 10/02/19 14:30 Last Admin: 10/02/19 15:01 Dose: 30 mg Ketorolac Tromethamine (Toradol) 30 mg IVPUSH Q6H PRN PRN Reason: Pain (severe 7-10) Stop: 10/03/19 06:00 Lidocaine (Xylocaine-Mpf 2%) Confirm Administered Dose 5 ml .ROUTE .STK-MED ONE Stop: 10/02/19 10:25 Midazolam HCl (Versed 1 Mg/Ml) Confirm Administered Dose 2 mg .ROUTE .STK-MED ONE Stop: 10/02/19 10:25 Ondansetron HCl (Zofran) Confirm Administered Dose 4 mg .ROUTE .STK-MED ONE Stop: 10/02/19 10:25 Propofol (Diprivan 20 Ml) Confirm Administered Dose 200 mg .ROUTE .STK-MED ONE Stop: 10/02/19 10:25 Rocuronium [place] (Zemuron) Confirm Administered Dose 100 mg .ROUTE .STK-MED ONE Stop: 10/02/19 10:25 Sugammadex Sodium (Bridion) Confirm Administered Dose 200 mg .ROUTE .STK-MED ONE Stop: 10/02/19 07:01 - Exam General: Alert Neck: Supple Lungs: Normal Respiratory Effort Cardiovascular: Regular Rate, Regular Rhythm GI/Abdominal Exam: Soft, Non-Tender, No Distention Extremities: Non-Tender Skin: Warm, Dry, Intact Wound/Incisions: Dressing Dry and Intact Neurological: No New Focal Deficit Psy/Mental Status: Alert, Normal Affect, Normal Mood Sepsis Event Note - Evaluation Sepsis Screening Result: No Definite Risk - Focused Exam Vital Signs: Vital Signs Temp Pulse Resp BP Pulse Ox 10/03/19 04:00 36.7 C 73 18 111/63 97 10/03/19 00:00 36.7 C 67 16 115/56 L 97 Date Exam was Performed: 10/03/19 Time Exam was Performed: 08:03 - Problem List & Annotations (1) Pelvic mass in female SNOMED Code(s): 04159347, 647089640 Code(s): R19.00 - INTRA-ABD AND PELVIC SWELLING, MASS AND LUMP, UNSP SITE Status: Acute Current Visit: No - Problem List Review Problem List Initiated/Reviewed/Updated: Yes - My Orders Last 24 Hours: My Active Orders 10/02/19 14:29 Patient Status [ADT] Routine Notify Provider Intake and Out [RC] ASDIRECTED Notify Provider Vital Signs [RC] ASDIRECTED Oxygen Therapy [RC] ASDIRECTED RT Incentive Spirometry [RC] Q2HWA Up With Assistance [RC] PER UNIT ROUTINE Up ad Yudy [RC] PER UNIT ROUTINE Acetaminophen/oxyCODONE [Percocet 325-5 MG] 1 tab PO Q4H PRN Acetaminophen/oxyCODONE [Percocet 325-5 MG] 2 tab PO Q4H PRN Morphine 4 mg IVPUSH Q2H PRN Ondansetron [Zofran] 4 mg IVPUSH Q6H PRN Promethazine [Phenergan] 25 mg IM Q6H PRN Peripheral IV Discontinue [OM.PC] Routine Sequential Compression Device [OM.PC] Per Unit Routine Resuscitation Status Routine 10/02/19 14:32 Ibuprofen [Motrin] 800 mg PO Q8H PRN DVT/VTE Prophylaxis Reflex [OM.PC] Routine 10/02/19 14:33 Antiembolic Devices [RC] .Routine 10/02/19 21:00 Docusate Sodium [Colace] 100 mg PO BID 10/02/19 Dinner Regular Diet [DIET] 10/03/19 04:28 Ready for Discharge [RC] PER UNIT ROUTINE 10/03/19 09:00 Pnv No.95/Ferrous Fum/Folic AC [ Vitamin Tablet] 1 tab PO DAILY - Assessment Assessment:: 29yo s/p exploratory laparotomy & removal of suspected dermoid cysts, POD#1 - Plan Plan:: Meeting all postoperative milestones. Plan to discharge home today. Reviewed postop precautions.
== END 2019-10-03 09:55 | disposition home or self-care (01) ==
LOC: MW.SDS 10:16 → MW.OB 15:23
PROVIDERS: ADMIT Obstetrics & Gynecology; ATTEND Obstetrics & Gynecology
DX: D27.1 Benign neoplasm of left ovary (principal); D27.0 Benign neoplasm of right ovary; N83.512 Torsion of left ovary and ovarian pedicle; N83.511 Torsion of right ovary and ovarian pedicle; Z87.891 Personal history of nicotine dependence
CPT/HCPCS: 36415; 58925; 84703; 85014; 85018; 85027; 86850; 86870; 86900; 86901; A9270; C1765; J0131; J1885; J2001; J2250; J2405; J2704; J3010; J3490; J7120; 00840; 88104; 88305; 88307; G0378